=== PATIENT | female | born 1990 | race African-American/Black ===

== ENCOUNTER 2023-07-21 17:05 | Emergency (ER) | payer SELFPAY ==
[~2023-07-21] VITALS: Ht 170.2 cm; Wt 79.0 kg
[2023-07-21 17:14] VITALS: O2SAT 100
[2023-07-21 17:50] LABS: CLARITY URINE CLEAR (CLEAR); COLOR URINE YELLOW (YELLOW); GLUCOSE URINE NEGATIVE (NEGATIVE); KETONES URINE NEGATIVE (NEGATIVE); OCCULT BLOOD URINE NEGATIVE (NEGATIVE); PH URINE 6.5 (4.5-8.0); PROTEIN URINE NEGATIVE (NEGATIVE); SPECIFIC GRAVITY URINE <=1.005 (1.005-1.030)
[2023-07-21 17:51] LABS: LEUKOCYTE ESTERASE URINE 1+ (NEGATIVE); NITRITE URINE NEGATIVE (NEGATIVE); UROBILINOGEN URINE 0.2 E.U./dL (0.2-1.0)
[2023-07-21 18:03] LABS: BACTERIA URINE 1+; RBC URINE 0-2 /hpf (0-2); SQUAMOUS EPITHELIAL CELL URINE 1+ /lpf (RARE/1+)
[2023-07-21 18:15] LABS: BASOPHILS % 0.5 % (0.0-2.0); EOSINOPHILS % 2.8 % (0.0-5.0); HEMATOCRIT. 34.5 % (36.0-48.0); HEMOGLOBIN. 11.5 g/dL (12.0-16.0); MEAN CORPUSCULAR HEMOGLOBIN 30.9 pg (28.0-32.0); MEAN CORPUSCULAR HGB CONC 33.3 g/dL (31.0-37.0); MEAN CORPUSCULAR VOLUME 92.8 fL (81.0-99.0); MEAN PLATELET VOLUME 7.8 fl (7.4-10.4); MONOCYTES % 11.3 % (2.0-8.0); NEUTROPHILS % 48.4 % (40.0-76.0); PLATELET 268 x1000/uL (130-400); RED BLOOD CELL COUNT 3.72 mill/uL (4.2-5.4); RED CELL DISTRIBUTION WIDTH 12.7 % (11.6-14.6); WHITE BLOOD COUNT 5.8 x1000/uL (4.5-11.0)
[2023-07-21 18:24] LABS: PROTHROMBIN TIME 11.1 sec (9.6-11.0)
[2023-07-21 18:28] LABS: ALANINE AMINOTRANSFERASE 13 IU/L (10-49); ALBUMIN 4.2 g/dL (3.2-4.8); ASPARTATE AMINOTRANSFERASE 16 IU/L (<34); BILIRUBIN TOTAL 0.6 mg/dL (0.1-1.0); CALCIUM 9.7 mg/dL (8.7-10.4); CARBON DIOXIDE 27 mEq/L (21-32); CHLORIDE 102 mEq/L (98-107); CREATININE 0.6 mg/dL (0.6-1.0); GLUCOSE 110 mg/dL (70-105); POTASSIUM 3.2 mEq/L (3.5-5.1); PROTEIN TOTAL 7.7 g/dL (6.0-8.3); SODIUM 135 mEq/L (136-145); UREA NITROGEN BLOOD 5 mg/dL (9-23)
[2023-07-21] MEDS ORDERED: ONDANSETRON 4MG ODT PO ONE (22:00)
[2023-07-21] MEDS ORDERED: POTASSIUM CHLORIDE 20MEQ/PACKET PO ONE (22:00)
[2023-07-21 22:51] VITALS: BP 133/74; PULSE 81; RESP 18; TEMP 98.1
== END 2023-07-21 22:51 | disposition home or self-care (01) ==
LOC: ER 17:05
DX: O21.1 Hyperemesis gravidarum with metabolic disturbance (principal); F19.90 Other psychoactive substance use, unspecified, uncomplicated; Z3A.09 9 weeks gestation of pregnancy
CPT/HCPCS: 99284; 76801; 80053; 81003; 81025; 84702; 83690; 85025; 85610; 36415; Q0162